=== PATIENT | female | born 1980 | race African-American/Black ===

== ENCOUNTER 2017-01-17 07:32 | Emergency (ER) | payer OTHER ==
[2017-01-17 07:41] VITALS: BP 119/75
== END 2017-01-17 08:30 | disposition home or self-care (01) ==
LOC: ED 07:32
DX: N76.0 Acute vaginitis (principal); I10 Essential (primary) hypertension
CPT/HCPCS: 82962

== ENCOUNTER 2017-01-19 20:07 | Emergency (ER) | payer OTHER ==
[2017-01-20 00:26] VITALS: BP 124/73
== END 2017-01-20 00:26 | disposition left against medical advice (07) ==
LOC: ED 20:07
DX: Z53.21 Procedure and treatment not carried out due to patient leaving prior to being seen by health care provider (principal)